=== PATIENT | female | born 1980 | race Caucasian/White ===

== ENCOUNTER 2018-10-28 15:08 | Emergency (ER) | payer OTHER ==
[~2018-10-28] VITALS: Ht 157.5 cm; Wt 59.0 kg
== END 2018-10-28 16:05 | disposition home or self-care (01) ==
LOC: ER 15:08
DX: S81.822A Laceration with foreign body, left lower leg, initial encounter (principal); W45.8XXA Other foreign body or object entering through skin, initial encounter; Y93.89 Activity, other specified; Y92.090 Kitchen in other non-institutional residence as the place of occurrence of the external cause; Y99.8 Other external cause status

== ENCOUNTER 2018-11-03 16:48 | Emergency (ER) | payer OTHER ==
[~2018-11-03] VITALS: Ht 157.5 cm; Wt 59.9 kg
== END 2018-11-03 17:48 | disposition home or self-care (01) ==
LOC: ER 16:48
DX: Z48.02 Encounter for removal of sutures (principal)

== ENCOUNTER 2021-04-30 08:00 | Outpatient (CLI) | payer OTHER | END 2021-04-30 08:30 | disposition home or self-care (01) | LOC: PPH VACUNA 08:00 | PROVIDERS: ATTEND Emergency Medicine Pediatric Emergency Medicine | DX: Z23 Encounter for immunization (principal) ==

== ENCOUNTER 2021-04-30 08:10 | Outpatient (CLI) | payer OTHER | END 2021-04-30 08:22 | disposition home or self-care (01) | LOC: TOM 08:10 | PROVIDERS: ATTEND Colon & Rectal Surgery | DX: R10.32 Left lower quadrant pain (principal); R10.13 Epigastric pain ==

== ENCOUNTER 2021-06-03 08:48 | Outpatient (CLI) | payer OTHER | END 2021-06-03 08:57 | disposition home or self-care (01) | LOC: SONOGRAMA 08:48 | PROVIDERS: ATTEND Surgery | DX: R19.00 Intra-abdominal and pelvic swelling, mass and lump, unspecified site (principal) ==

== ENCOUNTER 2022-03-10 08:54 | Outpatient (CLI) | payer OTHER | END 2022-03-10 09:03 | disposition home or self-care (01) | LOC: MAMO-SONO 08:54 | DX: N60.11 Diffuse cystic mastopathy of right breast (principal); N60.12 Diffuse cystic mastopathy of left breast ==